=== PATIENT | female | born 2000 | race Hispanic/Latino ===

== ENCOUNTER 2023-09-07 14:10 | Emergency (ER) | payer SELFPAY ==
[2023-09-07] MEDS ORDERED: Lidocaine 1% (PF) 30 ML VIAL ONE (15:59)
[2023-09-07] MEDS ORDERED: Methocarbamol 1 GM in Sodium Chloride 0.9% 100 ML IVPB SCH (16:00)
[2023-09-07] MEDS ORDERED: Ketorolac Tromethamine 30 MG/ML VIAL ONE (16:06)
[2023-09-07] MEDS ORDERED: Oxymetazoline HCl 0.05% (30 ML BOT) ONE (16:14)
[2023-09-07] MEDS ORDERED: LORazepam 2 MG/ML SYR.(CARPUJECT) ONE (17:15)
== END 2023-09-07 18:45 | disposition home or self-care (01) ==
LOC: ERS 14:10
DX: J38.00 Paralysis of vocal cords and larynx, unspecified (principal); F41.9 Anxiety disorder, unspecified; Z87.891 Personal history of nicotine dependence
CPT/HCPCS: 96365; 96375; J1885; J2001; J2060; J2800; J3490